=== PATIENT | female | born 1970 | race Caucasian/White ===

== ENCOUNTER 2016-07-27 08:24 | Emergency (ER) | payer SELFPAY ==
[2016-07-27] MEDS ORDERED: KETOROLAC TROMETHAMINE 60 MG/2 ML SDV IM ONE (09:31)
--- NOTE | 2016-07-27 09:38 | ER Document Report ---
ED Neck/Back Problem - General Chief Complaint: Low Back Pain Stated Complaint: BACK PAIN Time Seen by Provider: 07/27/16 09:24 Notes: 45 yo female c/o low back pain radiating to left leg x 1 week. pt works at [employer] has been lifting heavy boxes. denies fever, bowel,bladder change, paresthesias. TRAVEL OUTSIDE OF THE [place] IN LAST 30 DAYS: No - HPI Patient complains to provider of: Pain, Lower back Onset: Last week Onset: Gradual Timing: Constant, Worse Quality of pain: Burning, Sharp Pain Level: 5 Associated symptoms: Radiation to leg - left Exacerbated by: Sitting position Relieved by: Nothing - taking Motrin and daughter's prednisone without relief Similar symptoms previously: Yes Recently seen / treated by doctor: No - Related Data Allergies/Adverse Reactions: No Known Allergies Allergy (Verified 07/27/16 08:25) Past Medical History - General Information source: Patient - Social History Smoking Status: Current Every Day Smoker Chew tobacco use (# tins/day): No Frequency of alcohol use: None Drug Abuse: None Lives with: Family Family History: Reviewed & Not Pertinent Patient has suicidal ideation: No Patient has homicidal ideation: No - Medical History Medical History: Negative Renal/ Medical History: Denies: Hx Peritoneal Dialysis Skin Medical History: Reports Hx MRSA Surgical Hx: Negative - Immunizations Hx Diphtheria, Pertussis, Tetanus Vaccination: No Review of Systems - Review of Systems Constitutional: No symptoms reported EENT: No symptoms reported Cardiovascular: No symptoms reported Respiratory: No symptoms reported Gastrointestinal: No symptoms reported Genitourinary: No symptoms reported Female Genitourinary: No symptoms reported Musculoskeletal: See HPI, Back pain Skin: No symptoms reported Hematologic/Lymphatic: No symptoms reported Neurological/Psychological: No symptoms reported Physical Exam - Vital signs Vitals: Temp Pulse Resp BP Pulse Ox 98.2 F 93 14 92/48 L 97 07/27/16 08:26 07/27/16 08:26 07/27/16 08:26 07/27/16 08:26 07/27/16 08:26 Interpretation: Normal - General General appearance: Appears well, Alert In distress: Moderate - tearful - HEENT Head: Normocephalic, Atraumatic Eyes: Normal Pupils: PERRL - Respiratory Respiratory status: No respiratory distress Chest status: Nontender Breath sounds: Normal Chest palpation: Normal - Cardiovascular Rhythm: Regular Heart sounds: Normal auscultation Murmur: No - Abdominal Inspection: Normal Distension: No distension Bowel sounds: Normal Tenderness: Nontender Organomegaly: No organomegaly - Rectal Tenderness: No Notes: normal tone - Back Back: Tender - left lower back, + left SI tenderness. + left SLT, neg heel/ toe. able to sit, stand and walk with antalgic gait - Extremities General upper extremity: Normal inspection, Nontender, Normal color, Normal ROM , Normal temperature General lower extremity: Normal inspection, Nontender, Normal color, Normal ROM , Normal temperature, Normal weight bearing. No: Amy's sign - Neurological Neuro grossly intact: Yes Cognition: Normal Orientation: AAOx4 Rankin Coma Scale Eye Opening: Spontaneous Analia Coma Scale Verbal: Oriented Rankin Coma Scale Motor: Obeys Commands Analia Coma Scale Total: 15 Speech: Normal Motor strength normal: LUE, RUE, LLE, RLE Sensory: Normal - Psychological Associated symptoms: Normal affect, Normal mood - Skin Skin Temperature: Warm Skin Moisture: Dry Skin Color: Normal Course - Re-evaluation Re-evalutation: 07/27/16 09:36 no neurologic red flags. no imaging indicated. low suspicion for cauda equina , epidural abscess, spinal impingement. will treat with pain med and anti inflammatory medications. pt stable for discharge - Vital Signs Vital signs: Temp Pulse Resp BP Pulse Ox 98.2 F 93 14 92/48 L 97 07/27/16 08:26 07/27/16 08:26 07/27/16 08:26 07/27/16 08:26 07/27/16 08:26 Discharge - Discharge Clinical Impression: Left-sided low back pain with sciatica Qualifiers: Chronicity: acute Sciatica laterality: sciatica of left side Qualified Code(s) : M54.42 - Lumbago with sciatica, left side Condition: Stable Disposition: HOME, SELF-CARE Instructions: Ice Packs ([facility]), Low Back Pain ([facility]), Oral Narcotic Medication ( [facility]), Toradol Injection ([facility]), Sciatica ([facility]), Ibuprofen (General) ([facility]) Additional Instructions: take medications as prescribed apply to painful area follow up with primary care for further evaluation and treatment if pain persists return to ER for any worsening of status Prescriptions: Ibuprofen [Motrin 800 Mg Tablet] 800 mg PO Q6H #20 tablet Oxycodone HCl/Acetaminophen [Percocet 5-325 mg Tablet] 1 - 2 tab PO ASDIR PRN # 25 tablet PRN Reason: Forms: Return to Work
[2016-07-27 09:55] VITALS: BP 121/83
== END 2016-07-27 09:54 | disposition home or self-care (01) ==
LOC: ER 08:24
DX: M54.42 Lumbago with sciatica, left side (principal); M54.5 Low back pain; M54.9 Dorsalgia, unspecified; M79.605 Pain in left leg; X50.0XXA Overexertion from strenuous movement or load, initial encounter; F17.200 Nicotine dependence, unspecified, uncomplicated
CPT/HCPCS: 99283; 96372; J1885

== ENCOUNTER 2017-07-23 22:44 | Emergency (ER) | payer OTHER ==
[2017-07-23 23:31] VITALS: BP 110/85
--- NOTE | 2017-07-23 23:40 | ER Document Report ---
ED Fever - General Chief Complaint: Fever Stated Complaint: FEVER Time Seen by Provider: 07/23/17 23:34 Mode of Arrival: Ambulatory Information source: Patient Notes: Patient is a 46-year-old female who presents to the ER today for 10 days of sinus congestion, runny nose, productive cough with hot flashes and chills. Patient has not checked her temperature. She states the cough is worse at night. She denies any history of asthma or COPD, she denies any shortness of breath or wheezing. She states that her ribs are hurting from all the coughing. TRAVEL OUTSIDE OF THE [place] IN LAST 30 DAYS: No - Related Data Allergies/Adverse Reactions: No Known Allergies Allergy (Verified 07/27/16 08:25) Past Medical History - General Information source: Patient - Social History Smoking Status: Unknown if Ever Smoked Family History: Reviewed & Not Pertinent Patient has suicidal ideation: No Patient has homicidal ideation: No Renal/ Medical History: Denies: Hx Peritoneal Dialysis Skin Medical History: Reports Hx MRSA - Immunizations Hx Diphtheria, Pertussis, Tetanus Vaccination: No Review of Systems - Review of Systems Constitutional: See HPI EENT: See HPI Cardiovascular: No symptoms reported Respiratory: See HPI Gastrointestinal: No symptoms reported Genitourinary: No symptoms reported Female Genitourinary: No symptoms reported Musculoskeletal: See HPI Skin: No symptoms reported Hematologic/Lymphatic: No symptoms reported Neurological/Psychological: No symptoms reported Physical Exam - Vital signs Vitals: Temp Pulse Resp BP Pulse Ox 97.7 F 83 16 110/85 98 07/23/17 23:29 07/23/17 23:29 07/23/17 23:29 07/23/17 23:29 07/23/17 23:29 - Notes Notes: PHYSICAL EXAMINATION: GENERAL: Mildly ill-appearing, and in no acute distress. HEAD: Atraumatic, normocephalic. EYES: Pupils equal round and reactive to light, extraocular movements intact, sclera anicteric, conjunctiva are normal. ENT: ear canals without erythema or foreign body, TMs with air-fluid levels behind bilaterally, nares with mucoid discharge, oropharynx clear without exudates. Moist mucous membranes. Airway patent NECK: Normal range of motion, supple without lymphadenopathy LUNGS: Productive cough, otherwise CTAB and equal. No wheezes rales or rhonchi. HEART: Regular rate and rhythm without murmurs ABDOMEN: Soft, no tenderness. No guarding, no rebound BACK: no vertebral tenderness, normal ROM GI/: no CVA tenderness EXTREMITIES: Normal range of motion, no pitting edema. No cyanosis. NEUROLOGICAL: Cranial nerves grossly intact. Normal sensory/motor exams. PSYCH: Normal mood, normal affect. SKIN: Warm, Dry, normal turgor, no rashes or lesions noted Course - Vital Signs Vital signs: Temp Pulse Resp BP Pulse Ox 97.7 F 83 16 110/85 98 07/23/17 23:29 07/23/17 23:29 07/23/17 23:29 07/23/17 23:29 07/23/17 23:29 Discharge - Discharge Clinical Impression: Bronchitis Sinusitis Qualifiers: Sinusitis location: unspecified location Chronicity: acute Recurrence: non- recurrent Qualified Code(s): J01.90 - Acute sinusitis, unspecified Condition: Stable Disposition: HOME, SELF-CARE Additional Instructions: Return immediately for any new or worsening symptoms. Follow up with primary care provider, call tomorrow to make followup appointment. Prescriptions: Hydrocodone Bit/Homatropine [Hycodan Syrup 5-1.5 mg/5 ml Ud Cup] 5 ml PO Q4HP PRN #120 ml PRN Reason: Azithromycin [Zithromax 250 mg Tablet] 250 mg PO ASDIR PRN #6 tablet PRN Reason: Forms: Return to Work
[2017-07-23] MEDS ORDERED: AZITHROMYCIN 250 MG TABLET PO ONE (23:45)
[2017-07-23] MEDS ORDERED: ACETAMINOPHEN WITH CODEINE 120-12 MG/5 ML UDCUP PO ONE (23:45)
== END 2017-07-24 00:22 | disposition home or self-care (01) ==
LOC: ER 22:44
DX: J40 Bronchitis, not specified as acute or chronic (principal); J01.90 Acute sinusitis, unspecified; R50.9 Fever, unspecified; Z86.14 Personal history of Methicillin resistant Staphylococcus aureus infection
CPT/HCPCS: 99283; J3490

== ENCOUNTER 2018-09-02 19:19 | Emergency (ER) | payer SELFPAY ==
[2018-09-02 19:26] VITALS: BP 132/79
[2018-09-02] MEDS ORDERED: ACETAMINOPHEN 325 MG TABLET PO ONE (20:10)
--- NOTE | 2018-09-02 20:13 | ER Document Report ---
ED Medical Screen (RME) - General Chief Complaint: Vaginal Pain Stated Complaint: VAGINAL PAIN Time Seen by Provider: 09/02/18 19:56 Notes: Patient is a 47-year-old female who presents emergency department with a chief complaint of vaginal pain. She states that she was having intercourse last night and states that during and after intercourse she was having pain. She states that the intercourse was a very forceful. She also states that she has some dysuria. She is also having some pink discharge from her vagina. Patient has not been using protection and is not on control. Denies any abdominal pain. Exam: Soft nontender abdomen. I have greeted and performed a rapid initial assessment of this patient. A comprehensive ED assessment and evaluation of the patient, analysis of test results and completion of medical decision making process will be conducted by an additional ED providers. TRAVEL OUTSIDE OF THE [place] IN LAST 30 DAYS: No - Related Data Allergies/Adverse Reactions: aspirin Allergy (Verified 09/02/18 19:31) Past Medical History - General Last Menstrual Period: August 19 - Social History Chew tobacco use (# tins/day): No Frequency of alcohol use: Rare Drug Abuse: None Renal/ Medical History: Denies: Hx Peritoneal Dialysis Skin Medical History: Reports Hx MRSA - Immunizations Hx Diphtheria, Pertussis, Tetanus Vaccination: No Physical Exam - Vital signs Vitals: Temp Pulse Resp BP Pulse Ox 98.0 F 100 18 132/79 H 96 09/02/18 19:25 09/02/18 19:25 09/02/18 19:25 09/02/18 19:25 09/02/18 19:25 Course - Vital Signs Vital signs: Temp Pulse Resp BP Pulse Ox 98.0 F 100 18 132/79 H 96 09/02/18 19:25 09/02/18 19:25 09/02/18 19:25 09/02/18 19:25 09/02/18 19:25
[2018-09-02 20:34] LABS: ABSOLUTE BASOPHILS # (AUTO) 0.1 10^3/uL (0.0-0.2); ABSOLUTE EOSINOPHILS # (AUTO) 0.2 10^3/uL (0.0-0.6); ABSOLUTE LYMPHOCYTES (AUTO) 2.9 10^3/uL (0.5-4.7); ABSOLUTE MONOCYTES (AUTO) 0.6 10^3/uL (0.1-1.4); ABSOLUTE NEUT (AUTO) 3.5 10^3/uL (1.7-8.2); EOSINOPHILS % (AUTO) 2.7 % (0-6); HEMATOCRIT 44.5 % (36.0-47.0); HEMOGLOBIN 15.1 g/dL (12.0-15.5); LYMPHOCYTES % (AUTO) 40.2 % (13-45); MEAN CORPUSCULAR HEMOGLOBIN 30.6 pg (27.0-33.4); MEAN CORPUSCULAR HGB CONC 33.9 g/dL (32.0-36.0); MEAN CORPUSCULAR VOLUME 90 fl (80-97); MONOCYTES % (AUTO) 8.2 % (3-13); PLATELET COUNT 296 10^3/uL (150-450); RED BLOOD COUNT 4.93 10^6/uL (3.72-5.28); RED CELL DISTRIBUTION WIDTH 13.1 % (11.5-14.0); SEGMENTED NEUTROPHILS % (AUTO) 47.9 % (42-78); TOTAL CELLS COUNTED % (AUTO) 100 %; WHITE BLOOD COUNT 7.3 10^3/uL (4.0-10.5)
[2018-09-02 20:43] LABS: APPEARANCE,URINE SLIGHTLY-CLOUDY; BILIRUBIN,URINE NEGATIVE (NEGATIVE); CALCIUM OXALATE CRYSTALS,URINE MODERATE /HPF; COLOR,URINE AMBER; GLUCOSE, URINE NEGATIVE (NEGATIVE); KETONES,URINE TRACE mg/dL (NEGATIVE); LEUKOCYTE ESTERASE,URINE NEGATIVE (NEGATIVE); NITRITE,URINE NEGATIVE (NEGATIVE); PROTEIN,URINE 30 mg/dL (NEGATIVE); URINE SPECIFIC GRAVITY 1.026
[2018-09-02 20:52] LABS: ALANINE AMINOTRANSFERASE 24 U/L (9-52); ALBUMIN 4.3 g/dL (3.5-5.0); ALKALINE PHOSPHATASE 75 U/L (38-126); ANION GAP 8 (5-19); ASPARTATE AMINO TRANSFERASE 25 U/L (14-36); BILIRUBIN,DIRECT 0.3 mg/dL (0.0-0.4); BILIRUBIN,TOTAL 0.4 mg/dL (0.2-1.3); BLOOD UREA NITROGEN 9 mg/dL (7-20); CALCIUM 9.4 mg/dL (8.4-10.2); CARBON DIOXIDE 28 mmol/L (22-30); CHLORIDE 104 mmol/L (98-107); GLUCOSE 119 mg/dL (75-110); POTASSIUM 4.1 mmol/L (3.6-5.0); TOTAL PROTEIN 7.6 g/dL (6.3-8.2)
== END 2018-09-02 22:27 | disposition left against medical advice (07) ==
LOC: ER 19:19
DX: R10.2 Pelvic and perineal pain (principal); R30.0 Dysuria; Z88.6 Allergy status to analgesic agent; Z86.14 Personal history of Methicillin resistant Staphylococcus aureus infection
CPT/HCPCS: 36415; 80053; 81001; 81025; 85025; 99281

== ENCOUNTER 2019-07-26 08:41 | Emergency (ER) | payer SELFPAY ==
[2019-07-26] MEDS ORDERED: PREDNISONE 20 MG TABLET PO ONE (09:12)
--- NOTE | 2019-07-26 09:17 | ER Document Report ---
ED Neck/Back Problem - General Chief Complaint: Back Pain Stated Complaint: LOW BACK PAIN Time Seen by Provider: 07/26/19 09:06 Notes: HPI: 48-year-old female presenting with left lower back pain that radiates through the left gluteal region and down the left leg worse with movement or sitting over the last 3 days. Patient states she has a history of sciatica last episode was approximately 5 years ago. Does not follow with orthopedics or PCP secondary to insurance issues. No incontinence of urine or bowel. No fever. No flank pain. Patient states the symptoms that she has today are typical of what she considers to be sciatic issues. She is taken no medications for her symptoms Chief complaint: Sciatic pain ROS: See HPI - all other systems were reviewed and are otherwise negative Constitutional: no fever Eyes: no drainage, no blurred vision ENT: no runny nose, no sore throat Cardiovascular: no chest pain Resp: no SOB, no cough GI: no vomiting, no diarrhea, no abdominal pain : no dysuria Integumentary: no rash Allergy: no hives Musculoskeletal: Positive extremity pain or swelling, positive back pain and left leg pain Neurological: no numbness/tingling, no weakness MEDICATIONS: I agree with the patient medications as charted by the RN. ALLERGIES: I agree with the allergies as charted by the RN. PAST MEDICAL HISTORY/PAST SURGICAL HISTORY: Reviewed and agree as charted by RN. SOCIAL HISTORY: Reviewed and agree as charted by RN. FAMILY HISTORY: No significant familial comorbid conditions directly related to patient complaint EXAM: Reviewed vital signs as charted by RN. CONSTITUTIONAL: Alert and oriented and responds appropriately to questions. Well-appearing; well-nourished HEAD: Normocephalic; atraumatic EYES: PERRL; Conjunctivae clear, sclerae non-icteric ENT: normal nose; no rhinorrhea; moist mucous membranes NECK: Supple without meningismus CARD: symmetric distal pulses RESP: Normal chest excursion without splinting or tachypnea ABD/GI: Normal bowel sounds; non-distended; soft, non-tender, no rebound, no guarding; no palpable organomegaly or masses. BACK: The back appears normal and is nontender to palpation over the lumbar spine, very mild lateral lumbar muscular tenderness into the upper aspect of the left gluteal region on palpation, there is no CVA tenderness EXT: Normal ROM in all joints; non-tender to palpation; no cyanosis, no effusions, no edema SKIN: Normal color for age and race; warm; dry; good turgor; no acute lesions noted NEURO: Moves all extremities equally; Motor and sensory function intact. Strength equal 5/5 bilateral lower extremities. Sensation intact and equal bilateral lower extremities. Straight leg raise is negative. No saddle anesthesia on exam. DTRs 2+ intact and equal bilateral lower extremities. PSYCH: The patient's mood and manner are appropriate. Grooming and personal hygiene are appropriate. MDM: 48-year-old female with symptoms consistent with sciatica with history of same. Will start on steroids. Is allergic to aspirin so will not give Toradol. She can take other anti-inflammatories. We will keep her on steroids, short course of pain medication, referral to orthopedics. Low suspicion for cauda equina TRAVEL OUTSIDE OF THE [place] IN LAST 30 DAYS: No - Related Data Allergies/Adverse Reactions: aspirin Allergy (Verified 07/26/19 08:59) Past Medical History - Social History Smoking Status: Current Every Day Smoker Chew tobacco use (# tins/day): No Frequency of alcohol use: None Drug Abuse: None Family History: Reviewed & Not Pertinent Patient has homicidal ideation: No Renal/ Medical History: Denies: Hx Peritoneal Dialysis Skin Medical History: Reports Hx MRSA - Immunizations Hx Diphtheria, Pertussis, Tetanus Vaccination: No Physical Exam - Vital signs Vitals: Temp Pulse Resp BP Pulse Ox 97.5 F 103 H 16 116/86 H 98 07/26/19 08:48 07/26/19 08:48 07/26/19 08:48 07/26/19 08:48 07/26/19 08:48 Course - Vital Signs Vital signs: Temp Pulse Resp BP Pulse Ox 97.5 F 103 H 16 116/86 H 98 07/26/19 08:48 07/26/19 08:48 07/26/19 08:48 07/26/19 08:48 07/26/19 08:48 Discharge - Discharge Clinical Impression: Sciatica, left side Condition: Stable Disposition: HOME, SELF-CARE Additional Instructions: 1. Warm heat to the lower back twice daily 2. no heavy lifting for 2-3 days 3. medications as prescribed, no driving on narcotics 4. follow up with orthopedics for further evaluation and treatment as needed for any continuing pain or problems, call for appt. 5. return to the ER for any onset of incontinence of urine, fever > 101 or wo rsening condition Prescriptions: Prednisone [Deltasone 20 mg Tablet] 2 tab PO DAILY 5 Days #10 tablet Ibuprofen [Motrin 600 Mg Tablet] 600 mg PO Q6H #15 tablet Hydrocodone/Acetaminophen [[place] 5-325 mg Tablet] 1 tab PO Q4 PRN #15 tablet PRN Reason: Forms: Return to Work Referrals: JEFFREY FLOWERS JR, DO [ACTIVE [employer]OVISIONAL STAFF] - Follow up as needed
[2019-07-26 09:42] VITALS: BP 112/74
== END 2019-07-26 09:46 | disposition home or self-care (01) ==
LOC: ER 08:41
DX: M54.32 Sciatica, left side (principal); F17.200 Nicotine dependence, unspecified, uncomplicated; Z88.6 Allergy status to analgesic agent
CPT/HCPCS: 99283; J7512

== ENCOUNTER 2019-10-27 20:45 | Emergency (ER) | payer SELFPAY ==
[2019-10-27 21:06] VITALS: BP 131/78
[2019-10-27] MEDS ORDERED: ACETAMINOPHEN 325 MG TABLET PO ONE (21:06)
--- NOTE | 2019-10-27 21:11 | ER Document Report ---
ED Medical Screen (RME) - General Chief Complaint: Back Pain Stated Complaint: LEFT SIDED BACK PAIN DOWN TO LEG Time Seen by Provider: 10/27/19 20:59 Mode of Arrival: Ambulatory Information source: Patient Notes: 48-year-old female presents to ED for complaint of low back pain radiating down the left leg left hand pain and left ear pain. There does not appear to be any otitis media or externa. The does not have any teeth. I have ordered her some Tylenol as she took 400 mg of ibuprofen 2 hours ago and I have ordered her x- rays of the low back and the left hand. Patient is alert oriented respirations regular nonlabored speaking in full sentences. She does have a history of carpal tunnel surgery sciatica foot fracture, pneumonia, bronchitis and all of her teeth removed. She does smoke 1/2 pack a day. I have greeted and performed a rapid initial assessment of this patient. A comprehensive ED assessment and evaluation of the patient, analysis of test results and completion of medical decision making process will be conducted by an additional ED providers. TRAVEL OUTSIDE OF THE [place] IN LAST 30 DAYS: No - Related Data Allergies/Adverse Reactions: aspirin Allergy (Verified 07/26/19 08:59) Past Medical History Renal/ Medical History: Denies: Hx Peritoneal Dialysis Skin Medical History: Reports Hx MRSA - Immunizations Hx Diphtheria, Pertussis, Tetanus Vaccination: No Physical Exam - Vital signs Vitals: Temp Pulse Resp BP Pulse Ox 98.0 F 93 18 131/78 H 99 10/27/19 21:02 10/27/19 21:02 10/27/19 21:02 10/27/19 21:02 10/27/19 21:02 Course - Vital Signs Vital signs: Temp Pulse Resp BP Pulse Ox 98.0 F 93 18 131/78 H 99 10/27/19 21:02 10/27/19 21:02 10/27/19 21:02 10/27/19 21:02 10/27/19 21:02
[2019-10-27 21:57] LABS: APPEARANCE,URINE SLIGHTLY-CLOUDY; BILIRUBIN,URINE NEGATIVE (NEGATIVE); COLOR,URINE YELLOW; GLUCOSE, URINE NEGATIVE (NEGATIVE); KETONES,URINE NEGATIVE (NEGATIVE); LEUKOCYTE ESTERASE,URINE NEGATIVE (NEGATIVE); NITRITE,URINE NEGATIVE (NEGATIVE); PROTEIN,URINE NEGATIVE (NEGATIVE); URINE SPECIFIC GRAVITY 1.023; UROBILINOGEN,URINE NEGATIVE mg/dL (<2.0)
--- NOTE | 2019-10-27 22:04 | RADIOLOGY REPORT (SQ) ---
EXAM DESCRIPTION: XR LUMBAR SPINE ANTEROPOSTERIOR, LATERAL, AND OBLIQUES COMPLETED DATE/TME: 10/27/2019 21:07 CLINICAL HISTORY: 48 years, Female, Low back pain radiating down left leg COMPARISON: None. NUMBER OF VIEWS: 5 TECHNIQUE: 5 view lumbar spine LIMITATIONS: None. FINDINGS: Mild levoconvex scoliosis of the lumbar spine. However, vertebral body height and alignment is preserved. Facet arthropathy with disc space narrowing and spur formation L3-4, L4-5 and L5-S1. Sacroiliac joints are preserved IMPRESSION: Mild levoconvex scoliosis. Degenerative change, as above copyright 2010 [employer]- All Rights Reserved
--- NOTE | 2019-10-27 22:08 | RADIOLOGY REPORT (SQ) ---
EXAM DESCRIPTION: Left hand [facility]: XR HAND 3 OR MORE VIEWS Views: 3 CLINICAL HISTORY: 48 years Female; Left hand pain; COMPARISON: None. FINDINGS: Negative for acute fracture, dislocation, or radiopaque foreign body. IMPRESSION: 1. No acute findings.
[2019-10-28] MEDS ORDERED: ACETAMINOPHEN 325 MG TABLET ONE (00:45)
[2019-10-28] MEDS ORDERED: KETOROLAC TROMETHAMINE 60 MG/2 ML SDV IM ONE (00:47)
[2019-10-28] MEDS ORDERED: DEXAMETHASONE SOD PHOS INJ 10 MG/1 ML VIAL IM ONE (00:47)
[2019-10-28] MEDS ORDERED: HYDROCODONE/ACETAMINOPHEN 5-325 MG (6 TAB/ER DISP) PO PRN (00:49)
--- NOTE | 2019-10-28 00:55 | ER Document Report ---
ED General - General Chief Complaint: Back Pain Stated Complaint: LEFT SIDED BACK PAIN DOWN TO LEG Time Seen by Provider: 10/27/19 20:59 Mode of Arrival: Ambulatory Information source: Patient Notes: 48-year-old female coming in today with left-sided low back pain that radiates down the left leg. History of sciatica. No urinary symptoms. No loss of bladder or bowel control. Also having a "flareup "of her carpal tunnel in her left hand. Symptoms started after doing housework. No trauma. TRAVEL OUTSIDE OF THE [place] IN LAST 30 DAYS: No - Related Data Allergies/Adverse Reactions: aspirin Allergy (Verified 07/26/19 08:59) Home Medications: motrin prn Past Medical History - General Information source: Patient - Social History Smoking Status: Current Every Day Smoker Family History: Reviewed & Not Pertinent Renal/ Medical History: Denies: Hx Peritoneal Dialysis Skin Medical History: Reports Hx MRSA - Immunizations Hx Diphtheria, Pertussis, Tetanus Vaccination: No Review of Systems - Review of Systems Notes: Constitutional: No fevers. No chills. EENT: No eye redness. No eye pain. No ear pain. No sore throat. Cardiovascular: No chest pain. No palpitations. Respiratory: No cough. No shortness of breath. No respiratory distress. Gastrointestinal: No abdominal pain. No nausea, vomiting, or diarrhea. Genitourinary: Atraumatic. No lesions. No pain. No discharge. Musculoskeletal: Atraumatic. No swelling. No deformities. Positive for back pain, positive for left hand pain Skin: No rash or lesions. Lymphatic: No swollen lymph nodes. Neurologic: No headache. No syncope. Psychiatric: No suicidal or homicidal ideation. Physical Exam - Vital signs Vitals: Temp Pulse Resp BP Pulse Ox 98.0 F 93 18 131/78 H 99 10/27/19 21:02 10/27/19 21:02 10/27/19 21:02 10/27/19 21:02 10/27/19 21:02 - Notes Notes: General: Well-developed, well-nourished. In no acute distress. Non-toxic appearing. Cardiac: Well-perfused. Regular rate and rhythm. No murmurs, rubs, or gallops. Pulmonary: No respiratory distress. No cyanosis. Bilateral lung fiels are clear to auscultation. Abdominal: Non-distended. Non-rigid. Bowels sounds are present in all four quadrants. No guarding or rebound. HEENT: Head is atraumatic. Conjunctivae not reddened. No tearing. PERRL. EOMI. Orbits atraumatic. No periorbital swelling or erythema. Oropharynx is without erythema, swelling, or exudates. Neck: Supple. No adenopathy. No meningismus. Dermatologic: Warm with good turgor. No rash. Atraumatic. Chest: Atraumatic. No chest wall tenderness to palpation. Musculoskeletal: Moves all extremities well. No range of motion deficits. no muscular or joint tenderness. Tenderness to palpation of the left paralumbar region and left gluteal region. No midline spinal tenderness or step-off. Left hand is atraumatic appearing. No swelling Genitourinary: Examination deferred Neurologic: No gross neurologic deficits. Psychiatric: Normal mood. Course - Re-evaluation Re-evalutation: 10/28/19 00:52 She had x-rays of the L-spine and left hand. No bony injuries. Patient will get take-home pack of XTRM and we will give her some Toradol and dexamethasone here - Vital Signs Vital signs: Temp Pulse Resp BP Pulse Ox 98.0 F 93 18 131/78 H 99 10/27/19 21:02 10/27/19 21:02 10/27/19 21:02 10/27/19 21:02 10/27/19 21:02 - Diagnostic Test Radiology reviewed: Reports reviewed Discharge - Discharge Clinical Impression: Left hand pain Sciatica Qualifiers: Laterality: left Qualified Code(s): M54.32 - Sciatica, left side Condition: Good Disposition: HOME, SELF-CARE Instructions: Ice Packs ([facility]), Low Back Pain ([facility]), Oral Narcotic Medication ([facility]) Prescriptions: Methylprednisolone [Medrol Dosepack (4 mg/Tab) 21 Tab/Dosepak] 4 mg PO ASDIR PRN #21 tab.ds.pk PRN Reason: Naproxen 500 mg PO BID 5 Days #10 tablet Forms: Return to Work
== END 2019-10-28 01:10 | disposition home or self-care (01) ==
LOC: ER 20:45
DX: M47.26 Other spondylosis with radiculopathy, lumbar region (principal); M47.27 Other spondylosis with radiculopathy, lumbosacral region; G56.02 Carpal tunnel syndrome, left upper limb; F17.200 Nicotine dependence, unspecified, uncomplicated; Z88.8 Allergy status to other drugs, medicaments and biological substances
CPT/HCPCS: 99284; 96372; 81001; 73130; 72110; J1885; J1100